=== PATIENT | male | born 1955 | race Caucasian/White ===

== ENCOUNTER 2018-08-08 16:10 | Emergency (ER) | payer MEDICARE, MEDICAID ==
--- NOTE | 2018-08-08 16:21 | EDM.PDOC ---
ED HPI GENERAL MEDICAL PROBLEM - General Chief Complaint: Neuro Symptoms/Deficits Stated Complaint: [facility] Time Seen by Provider: 08/08/18 16:18 Source of Information: Reports: Patient, EMS History Limitations: Reports: No Limitations - History of Present Illness INITIAL COMMENTS - FREE TEXT/NARRATIVE: 63-year-old male presents to the ED per ambulance. Patient states he was okay when he woke up this morning and around 8:30 he started to identify that his speech was not right and he could not communicate normally with his family members which could cause a good deal of frustration. I.e. he exhibited expressive aphasia. 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 He gets around with aid of somebody helping him. He can't use a walker. She is wheelchair-bound. He complains of a severe headache in the vertex of his scalp. He states he rarely gets a headache. Described as constant and throbbing. He did have nausea and vomiting 1 today. No change in his visual acuity. He appreciates increased numbness and tingling in his right hand and leg. Not so much in his face. No trouble swallowing. Hasn't had much to eat or drink yet today. Of note the patient is on Plavix 75 mg daily since he had his last stroke. I believe is also on a baby aspirin daily. He states his symptoms waxed and waned for a period of time this morning but it's been at least 4 hours without any change in his symptoms. Onset: Today Onset Date: 08/08/18 (First noted trouble speaking or expressive aphasia around 0830 hrs. this morning) Onset Time: 08:30 Duration: Hour(s):, Constant (In terms been constant for the last 4-1/2 hours.) , Intermittent, Waxing/Waning Location: Reports: Other (Ratio is increased right sided arm and leg numbness and tingling and intermittent problems with his speech i.e. 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: Reports: EKG, IV/IO Headache Pain Score (Numeric/FACES): 8 - Related Data Allergies Allergy/AdvReac Type Severity Reaction Status Date / Time ampicillin Allergy Airway Verified 08/08/18 16:29 Tightness levofloxacin [From Levaquin] Allergy Airway Verified 08/08/18 16:29 Tightness tramadol [From Ultram] Allergy Airway Verified 08/08/18 16:29 Tightness Home Meds: Home Meds Aspirin 81 mg PO DAILY 08/08/18 [History] Clopidogrel Bisulfate [Plavix] 75 mg PO DAILY 08/08/18 [History] Dulaglutide [Trulicity] 50 mg SQ ASDIRECTED 08/08/18 [History] Fluconazole [Diflucan] 100 mg PO DAILY 08/08/18 [History] Hydrochlorothiazide [Microzide] 12.5 mg PO DAILY 08/08/18 [History] Losartan [Cozaar] 100 mg PO DAILY 08/08/18 [History] Memantine [Namenda] 5 mg PO DAILY 08/08/18 [History] Simvastatin [Zocor] 40 mg PO BEDTIME 08/08/18 [History] buPROPion HCl [Wellbutrin Xl] 300 mg PO DAILY 08/08/18 [History] metFORMIN HCl [Metformin HCl] 1,000 mg PO BID 08/08/18 [History] Past Medical History Cardiovascular History: Reports: High Cholesterol, Hypertension, PA Respiratory History: Reports: COPD Genitourinary History: Reports: Prostate Disorder Neurological History: Reports: CVA (Patient has a complete right sided hemiparesis with flexion contractures at the hand wrist and elbow on the right side from a stroke 4 years ago. He walks with the aid of one person aid as he is not able to hang onto a walker.), TIA Endocrine/Metabolic History: Reports: Diabetes, Type II (Controlled with to the city and metformin.) Social & Family History - Living Situation & Occupation Living situation: Reports: , with Family Occupation: Disabled [facility] [employer] [facility] - Review of Systems Review Of Systems: See Below (His family members care for him.) Constitutional: Reports: Fatigue (Chronically). Denies: Fever, Chills, Malaise HEENT: Reports: Glasses (For reading sometimes). Denies: Contact Lenses Respiratory: Reports: Shortness of Breath (Chronically still smokes a pack a day ), Cough, Sputum. Denies: Hemoptysis Cardiovascular: Reports: Blood Pressure Problem, Edema. Denies: Chest Pain, Claudication, Lightheadedness, Orthopnea Endocrine: Reports: Fatigue (Mild in both lower extremities mostly on the right from not moving.), Other (Sugars have been for the most part pretty well controlled since he's be sedentary.) GI/Abdominal: Reports: Constipation (Additional problems with his bowels.) : Reports: Frequency, Other (Nocturia usually 2 or 3) Musculoskeletal: Reports: Other (Patient has a right-sided hemiparesis with Dundy contractures of his wrist elbow on the right side. He has a right- sided foot drop for which he uses an AFO splint.) Skin: Reports: Bruising ( He can walk with the aid of a helper on the right side but is not able to use a walker because he can hang onto it with his right hand.is easily because he is on Plavix and aspirin. ) Neurological: Reports: Confusion (Charges show signs of dementia with loss of acute memory. He is on Namenda.) Psychiatric: Reports: No Symptoms Hematologic/Lymphatic: Reports: No Symptoms Immunologic: Reports: No Symptoms ED EXAM, NEURO - Physical Exam Exam: See Below Exam Limited By: No Limitations General Appearance: Alert, WD/WN, No Apparent Distress, Other (Chills understandable but he has some very mild expressive aphasia symptoms at the time of my assessment. He is not nearly as stressed out about it is his family members are.) Eye Exam: Bilateral Eye: Normal Fundi, PERRL Throat/Mouth: Other (Tongue is dry and coated. Teeth are in need of dental care. ) Head Exam: Atraumatic, Normocephalic Neck: Limited Range of Motion. No: Full Range of Motion, Lymphadenopathy (L), Lymphadenopathy (R) Respiratory/Chest: Chest Non-Tender, Decreased Breath Sounds, Wheezing ( Decreased breath sounds the posterior aspect of 25% of his lung waldron. Lateral expiratory wheezes on expiration.). No: Normal Breath Sounds Cardiovascular: No Gallop (Tachycardia 1 18/m initially but it did come down to 100/m over time), No Murmur, No Rub, Tachycardia. No: Normal Peripheral Pulses , No Edema GI/Abdominal: Normal Bowel Sounds, Soft, Non-Tender, No Organomegaly Neurological: Alert, CN II-XII Intact, Oriented x 3, Other (She has a complete right sided hemiparesis. He has flexion contractures at his right wrist and elbow. He wears an AFO splint on the right side because of foot drop on the right side. He has absence of any reflexes on the right side. Left side shows 1 + reflexes at the biceps and brachial radialis and 1+ at the patellar reflex he has no ankle jerk on the left side. Motor power and tone in the left side appeared to be normal.). No: Normal Dorsiflexion, Normal Plantar Flexion, Normal Gait, Normal Reflexes DTR: 0: Bicep (R), Patella (R), Achilles (R), Achilles (L), 1+: Bicep (L), Patella (L) Extremities: Other (Flexion contractures of the wrist on the right side as well as the elbow.) Psychiatric: Normal Affect ( Foot drop on the right side.), Normal Mood Skin Exam: Warm, Dry, Intact, Normal Color, No Rash EKG INTERPRETATION EKG Date: 08/08/18 Time: 16:16 Rhythm: NSR Rate (Beats/Min): 95 [place]: Normal P-Wave: Present QRS: Other (Early R-wave transition. Continue sitter right ventricular hypertrophy pattern versus septal hypertrophy pattern. Decreased voltage throughout the limb leads. PD pattern) ST-T: Other (T-wave flattening noted in aVL and 3 and perhaps aVF nonspecific findings) EKG Interpretation Comments: Borderline ECG Course - Vital Signs Last Recorded V/S: Last Vital Signs Temp 36.6 C 08/08/18 16:15 Pulse 105 H 08/08/18 16:15 Resp 16 08/08/18 16:15 BP Pulse Ox 97 08/08/18 16:15 - Orders/Labs/Meds Orders: Active Orders 24 hr Category Date Time Status Blood Glucose Check, Bedside [RC] ONETIME Care 08/08/18 16:37 Active EKG Documentation Completion [RC] STAT Care 08/08/18 16:20 Active Sodium Chloride 0.9% [Normal Saline] 1,000 ml Med 08/08/18 16:45 Active IV ASDIRECTED Medication Orders Sodium Chloride (Normal Saline) 1,000 mls @ 125 mls/hr IV ASDIRECTED IVELISSE Last Admin: 08/08/18 16:42 Dose: 125 mls/hr Labs: Laboratory Tests 08/08/18 08/08/18 08/08/18 Range/Units 16:17 16:18 16:18 WBC 8.16 (4.23-9.07) K/mm3 RBC 4.48 L (4.63-6.08) M/mm3 Hgb 12.5 L (13.7-17.5) gm/L Hct 36.6 L (40.1-51.0) % MCV 81.7 (79.0-92.2) fl MCH 27.9 (25.7-32.2) pg MCHC 34.2 (32.2-35.5) g/dl RDW Std Deviation 43.6 (35.1-43.9) fL Plt Count 346 H (163-337) K/mm3 MPV 9.0 L (9.4-12.3) fl Neutrophils % (Manual) 42 (40-60) % Band Neutrophils % 0 (0-10) % Lymphocytes % (Manual) 51 H (20-40) % Atypical Lymphs % 0 % Monocytes % (Manual) 5 (2-10) % Eosinophils % (Manual) 2 (0.8-7.0) % Basophils % (Manual) 0 L (0.2-1.2) Platelet Estimate Adequate Plt Morphology Comment Normal RBC Morph Comment Normal PT 11.4 (9.5-12.1) SECONDS INR 1.05 APTT 31 (24-31) SECONDS Sodium (136-145) mEq/L Potassium (3.5-5.1) mEq/L Chloride (98-107) mEq/L Carbon Dioxide (21-32) mEq/L Anion Gap (5-15) BUN (7-18) mg/dL Creatinine (0.7-1.3) mg/dL Est Cr Clr Drug Dosing mL/min Estimated GFR (MDRD) (>60) mL/min BUN/Creatinine Ratio (14-18) Glucose (80-115) mg/dL POC Glucose 129 H (80-115) mg/dL Calcium (8.5-10.1) mg/dL Magnesium (1.8-2.4) mg/dl Total Bilirubin (0.2-1.0) mg/dL AST (15-37) U/L ALT (16-63) U/L Alkaline Phosphatase (46-116) U/L CK-MB (CK-2) (0-3.6) ng/ml Troponin I (0.00-0.056) ng/mL C-Reactive Protein (<1.0) mg/dL NT-Pro-B Natriuret Pep (0-125) pg/mL Total Protein (6.4-8.2) g/dl Albumin (3.4-5.0) g/dl Globulin gm/dL Albumin/Globulin Ratio (1-2) 08/08/18 08/08/18 Range/Units 16:18 16:18 WBC (4.23-9.07) K/mm3 RBC (4.63-6.08) M/mm3 Hgb (13.7-17.5) gm/L Hct (40.1-51.0) % MCV (79.0-92.2) fl MCH (25.7-32.2) pg MCHC (32.2-35.5) g/dl RDW Std Deviation (35.1-43.9) fL Plt Count (163-337) K/mm3 MPV (9.4-12.3) fl Neutrophils % (Manual) (40-60) % Band Neutrophils % (0-10) % Lymphocytes % (Manual) (20-40) % Atypical Lymphs % % Monocytes % (Manual) (2-10) % Eosinophils % (Manual) (0.8-7.0) % Basophils % (Manual) (0.2-1.2) Platelet Estimate Plt Morphology Comment RBC Morph Comment PT (9.5-12.1) SECONDS INR APTT (24-31) SECONDS Sodium 138 (136-145) mEq/L Potassium 3.4 L (3.5-5.1) mEq/L Chloride 101 (98-107) mEq/L Carbon Dioxide 27 (21-32) mEq/L Anion Gap 13.4 (5-15) BUN 13 (7-18) mg/dL Creatinine 1.4 H (0.7-1.3) mg/dL Est Cr Clr Drug Dosing 52.60 mL/min Estimated GFR (MDRD) 51 (>60) mL/min BUN/Creatinine Ratio 9.3 L (14-18) Glucose 127 H (80-115) mg/dL POC Glucose (80-115) mg/dL Calcium 8.7 (8.5-10.1) mg/dL Magnesium 1.1 L (1.8-2.4) mg/dl Total Bilirubin 0.4 (0.2-1.0) mg/dL AST 14 L (15-37) U/L ALT 20 (16-63) U/L Alkaline Phosphatase 75 (46-116) U/L CK-MB (CK-2) 0.6 (0-3.6) ng/ml Troponin I < 0.017 (0.00-0.056) ng/mL C-Reactive Protein < 0.2 (<1.0) mg/dL NT-Pro-B Natriuret Pep 126 H (0-125) pg/mL Total Protein 7.4 (6.4-8.2) g/dl Albumin 3.4 (3.4-5.0) g/dl Globulin 4.0 gm/dL Albumin/Globulin Ratio 0.9 L (1-2) Meds: Medications Generic Name Dose Route Start Last Admin Trade Name Freq PRN Reason Stop Dose Admin Sodium Chloride 1,000 mls @ 125 mls/hr 08/08/18 16:45 08/08/18 16:42 Normal Saline IV 125 mls/hr ASDIRECTED IVELISSE Administration Discontinued Medications Generic Name Dose Route Start Last Admin Trade Name Freq PRN Reason Stop Dose Admin Hydromorphone HCl 1 mg 08/08/18 16:48 08/08/18 16:53 Dilaudid IVPUSH 08/08/18 16:49 1 mg ONETIME ONE Administration Ondansetron HCl 4 mg 08/08/18 16:49 08/08/18 16:53 Zofran IVPUSH 08/08/18 16:50 4 mg ONETIME ONE Administration - Radiology Interpretation Free Text/Narrative:: 63-year-old male attends the ED with the development of stroke like symptoms with expressive aphasia starting about 0830 hrs. this morning. Patient has had previous right-sided stroke with hemiparesis of the right side persisting for years ago. He's been in a combination of therapy programs which she's given up on. He walks with aid of one person help her. He can hang onto a walker. He wears an AFO splint on the right side to aid his gait because he has a foot drop on the right side. Currently has significant flexion contractures of his right wrist and elbow. Family members indicate that he did have an expressive aphasia and was not understandable for a couple of times a day. Symptoms waxed and waned a couple of occasions. Is on Plavix and baby aspirin which she states she's been compliant with. ECG shows sinus rhythm without any ectopy. At time of my assessment he had very minimal expressive aphasia symptoms. Because a stroke alert was called he was sent immediately to the CT suite. CT identified that he has very prominent ventricles along the basal cisterns and sulci over the convexities are mildly prominent compatible with degenerative change there is old white matter infarct noted within the left basal ganglia extending into the centrum semiovale on the left side additional old basal ganglia infarct is noted adjacent to the head of the caudate nucleus extending into the periventricular white matter. Other scattered lacunar infarcts are seen within the basal ganglia. There is diminished density noted within the periventricular and subcortical white matter compatible small vessel ischemic demyelination changes bilaterally. No other parenchymal densities are seen. No evidence of intracranial hemorrhage no midline shift or mass effect incidentally there is a small air-fluid level within the right maxillary sinus considered to be chronic. There is mild mucosal thickening seen within both mastoid sinuses most likely pre-existing and chronic. No acute intracranial hemorrhage is appreciated. Chest x-ray shows scar tissue in both the right and lower lobes of the lungs. Patient continues to smoke a pack of cigarettes per day. No clinical evidence of pneumonia. - Re-Assessments/Exams Free Text/Narrative Re-Assessment/Exam: 08/08/18 18:08 Labs reveal a normal white count at 8.16. Differential is 42% neutrophils no bands with 51% lymphocytes ie. A right shift. Hemoglobin is 12.5 with hematocrit of 36.6. Chemistry and 46,000. PT is 11.4 with an INR of 1.05. PTT is 31. Sodium is 138 with potassium of 3.4. Chloride is 11 with a bicarbonate 27. Anion gap is 13.4. BUN is 13 with a creatinine of 1.4. GFR is 51. Glucose is 127. Calcium is 8.7 with a magnesium of 1.1. Total bilirubin is 0.4. AST is 14 with a nail T of 20. Alk phosphatase is 75. Troponin I is less than 0.017. CK-MB fraction is less than 0.6. BNP is 126. Total protein is 7.4 with an albumin fraction of 3.4. On reassessment his speech is returned to normal. Therefore he must have had a plaque causing a TIA symptoms with resolution. He is on maximum therapy with spurring and lab X daily. I'm going to have the nurses dress him with his AFO splint on his right foot and his daughter to assess the degree of weakness on the right side as to whether there is a dramatic change or not. Patient is not keen to stay in hospital. There is not much else we have to offer either. Certainly is not willing to go into a prison setting at this time. 08/08/18 18:55: Patient got up with his family members with his AFO splint on and was able to walk pretty well like he was at home. He wants to go home and they're willing to take him home and therefore he will be discharged in their care. I've increased his aspirin to 81 mg twice daily for 2 weeks and then is to return to once daily dosing. He will continue his Plavix 75 mg daily as well. Departure - Departure Time of Disposition: 18:37 Disposition: Home, Self-Care 01 Condition: Fair Clinical Impression: TIA (transient ischemic attack) - Discharge Information *PRESCRIPTION DRUG MONITORING PROGRAM REVIEWED*: Not Applicable *COPY OF PRESCRIPTION DRUG MONITORING REPORT IN PATIENT MATTY: Not Applicable Instructions: Transient Ischemic Attack, [id number] Forms: ED Department Discharge Additional Instructions: Evaluation in the emergency room today in regards to development of what we call expressive aphasia. This means that since 8:30 this morning you appreciated troubles getting out the right words to say and sometimes you were not easily understandable. Symptoms waxed and waned her came and went a couple of times but has remained pretty stable while in the emergency room. Previous right-sided hemiparesis from stroke 4 years ago. Is the same side that would be affected as a speech centers on the left side as the brain in the left side of the brain controls the right side of your body. CT repeated in the ED reveals multiple evidence of strokes on the left side of your brain was no evidence of any intracranial bleeding or hemorrhage and no mass effect or midline changes. There is evidence of a right-sided maxillary sinus infection which appears to be chronic. All the lab work also proved to be normal without any abnormalities appreciated. You're already on maximum therapy with Plavix 75 mg a day to try and prevent stroke. This prevents clot from occurring and causing a stroke but it does not prevent plaque breaking up from the inside of blood vessels and causing a stroke. The plaque often will break up into small particles to be what happened today. This is greater right area within the artery which makes it more prolonged prone to clotting over the next 7-10 days. It is suggested that you increase her aspirin to 81 mg twice daily for the next 2 weeks and then go back to once daily usage. Of course return to the hospital if any further major deficits occur. Follow-up with your personal care physician as planned. - My Orders Last 24 Hours: My Active Orders 08/08/18 16:20 EKG Documentation Completion [RC] STAT 08/08/18 16:37 Blood Glucose Check, Bedside [RC] ONETIME 08/08/18 16:45 Sodium Chloride 0.9% [Normal Saline] 1,000 ml IV ASDIRECTED - Assessment/Plan Last 24 Hours: My Active Orders 08/08/18 16:20 EKG Documentation Completion [RC] STAT 08/08/18 16:37 Blood Glucose Check, Bedside [RC] ONETIME 08/08/18 16:45 Sodium Chloride 0.9% [Normal Saline] 1,000 ml IV ASDIRECTED
[2018-08-08] MEDS ORDERED: Sodium Chloride 0.9% 1,000 ML IV SCH (16:45)
[2018-08-08] MEDS ORDERED: HYDROmorphone 1 MG/ML Syringe IVPUSH ONE (16:48)
[2018-08-08] MEDS ORDERED: Ondansetron 4 MG/2 ML SDV IVPUSH ONE (16:49)
--- NOTE | 2018-08-08 16:58 | CT ---
Head CT Technique: Multiple axial sections through the brain were obtained. Intravenous contrast was not utilized. Comparison: No prior intracranial imaging. Findings: Ventricles along with basal cisterns and sulci over the convexities are mildly prominent. Old white matter infarct is noted within the left basal ganglia extending into the centrum semi-ovale on the left side. Additional old basal ganglia infarct is noted adjacent to the head of the caudate nucleus extending into the periventricular white matter. Other scattered lacunar infarcts are seen within the basal ganglia. Diminished density is noted within the periventricular and subcortical white matter compatible with small vessel ischemic demyelination change. No other abnormal parenchymal densities are seen. No evidence of intracranial hemorrhage. No midline shift or mass effect is seen. Bone window settings were reviewed which shows no acute calvarial abnormality. Small air-fluid level is seen within the right maxillary sinus. Minimal mucosal thickening is seen within both mastoid sinuses. Impression: 1. Old infarcts as noted above. Small vessel ischemic demyelination change and atrophy is seen. 2. Small air-fluid level within the right maxillary sinus most likely due to retained secretions. Mild mucosal thickening is seen within both mastoid sinuses most likely pre-existing and chronic. 3. No acute intracranial abnormality is appreciated. Diagnostic code #2
--- NOTE | 2018-08-08 17:58 | CR ---
Chest: Portable view of the chest was obtained. Comparison: No prior chest x-ray. Atelectasis or scarring is seen within both mid and lower lungs. Perihilar markings are mildly increased on the left side suggesting possible bronchitis. Lungs otherwise are clear. Heart size is normal. Slightly prominent upper mediastinum is seen most likely representing tortuous great vessels. Bony structures are grossly intact. Impression: 1. Possible slight left lower lobe bronchitis. 2. Atelectasis or scarring within both lungs. 3. Other incidental findings. Diagnostic code #3
== END 2018-08-08 18:53 | disposition home or self-care (01) ==
LOC: JD.ED 16:10
DX: G45.9 Transient cerebral ischemic attack, unspecified (principal); I10 Essential (primary) hypertension; I25.2 Old myocardial infarction; E11.9 Type 2 diabetes mellitus without complications; Z88.1 Allergy status to other antibiotic agents; Z88.5 Allergy status to narcotic agent; Z79.82 Long term (current) use of aspirin; Z79.899 Other long term (current) drug therapy; Z79.84 Long term (current) use of oral hypoglycemic drugs; Z86.73 Personal history of transient ischemic attack (TIA), and cerebral infarction without residual deficits
CPT/HCPCS: 36415; 70450; 71045; 80053; 82553; 82962; 83735; 83880; 84484; 85007; 85027; 85610; 85730; 86140; 93005; 96361; 96374; 96375; 99285; J1170; J2405; J7040

== ENCOUNTER 2020-03-24 07:23 | Inpatient (IN) | payer MEDICARE, MEDICAID ==
--- NOTE | 2020-03-24 07:38 | EDM.PDOC ---
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 He had some speech involvement at that time. This morning he has inability to communicate verbally that makes any sense. I significant dysarthria and depressive aphasia. And is usually able to walk with the aid of a AFO splint on his right leg which remains in place at all times.) - History of Present Illness INITIAL COMMENTS - FREE TEXT/NARRATIVE: 64-year-old male presents to the ED per [facility]. The history suggest that they try to get him up this morning and he went down to the floor. They were unable to get him up and had to call the ambulance. They felt that his right-sided weakness was much worse than in the past. Of note he has had a previous CVA with a dense right-sided hemiparesis . He wears an AFO splint on his right lower extremity but does not walk. He gets around it with the aid of a wheelchair. He does have flexion contractures of his hand wrist and elbow on the right side. They also felt that his speech is deteriorated to the point that he was not understandable this morning. He they can understand his speech quite clearly. Patient is not able to tell us if he has a headache. It appears that he has lost some visual field on the left side. Patient is on Plavix due to stroke. I believe he still smokes cigarettes and has known COPD. He is also a type II diabetic. He also has hypertension. Apparently someone in the same household that he lives in had a COVID test done yesterday due to loss of taste and cough. However the results are not yet known to her. Onset: Today, Unknown/Unsure (Woke with symptom complex this morning.) Onset Date: 03/24/20 Duration: Other (Unknown.) Location: Reports: Upper Extremity, Right (Pre-existing right upper extremity paresis with flexion contractures of all of his fingers into a ball or a fist. No ability to move his wrist and flexion contracture at the elbow on the right side.), Lower Extremity, Right (Usually was able to walk with the aid of a AFO splint on the right leg. Fairly this is not the case this morning. Splint is in place.) Quality: Reports: Other (Increased right-sided weakness and speech deficit with dysarthria and speech that is not discernible.) Severity: Severe Improves with: Reports: None Worsens with: Reports: None Context: Reports: Other (Awoke with symptom complex this morning. Unsure when deficits started). Denies: Activity, Exercise, Sick Contact, Trauma Associated Symptoms: Denies: Confusion, Chest Pain, Cough, cough w sputum, Diaphoresis, Fever/Chills, Headaches, Nausea/Vomiting Treatments DIRECT[employer] OF [employer] SALES: Reports: Other (see below) - Related Data Allergies Allergy/AdvReac Type Severity Reaction Status Date / Time ampicillin Allergy Airway Verified 03/24/20 13:32 Tightness levofloxacin [From Levaquin] Allergy Airway Verified 03/24/20 13:32 Tightness tramadol [From Ultram] Allergy Airway Verified 03/24/20 13:32 Tightness Home Meds: Home Meds Aspirin 81 mg PO DAILY 08/08/18 [History] Clopidogrel Bisulfate [Plavix] 75 mg PO DAILY 08/08/18 [History] Losartan [Cozaar] 100 mg PO DAILY 08/08/18 [History] Memantine [Namenda] 5 mg PO DAILY 08/08/18 [History] Simvastatin [Zocor] 40 mg PO BEDTIME 08/08/18 [History] hydroCHLOROthiazide [Microzide] 12.5 mg PO DAILY 08/08/18 [History] metFORMIN HCl [Metformin HCl] 1,000 mg PO BID 08/08/18 [History] Dulaglutide [Trulicity] 1.5 mg SQ WEEKLY 03/24/20 [History] Insulin Aspart [NovoLOG] 0 units SUBCUT DAILY 03/24/20 [History] Insulin Glargine,Hum.Rec.Anlog [Basaglar Kwikpen U-100] 30 units SQ BID 03/24/20 [History] Levothyroxine 75 mcg PO DAILY 03/24/20 [History] Pantoprazole Sodium [Protonix] 20 mg PO DAILY 03/24/20 [History] Past Medical History Cardiovascular History: Reports: High Cholesterol, Hypertension, [place] Respiratory History: Reports: COPD Gastrointestinal History: Reports: GERD Genitourinary History: Reports: Prostate Disorder Neurological History: Reports: CVA (Patient has a complete right sided hemiparesis with flexion contractures at the hand wrist and elbow on the right side from a stroke 4 years ago. He walks with the aid of one person aid as he is not able to hang onto a walker.), TIA Endocrine/Metabolic History: Reports: Diabetes, Type II (Controlled with to the city and metformin.) Social & Family History - Living Situation & Occupation Living situation: Reports: , with Family Occupation: Disabled ED ROS GENERAL - Review of Systems Review Of Systems: Unable To Obtain (Unable to obtain) Reason Not Obtained: Very dysarthria and expressive aphasia as part of a stroke comple ED EXAM, NEURO - Physical Exam Exam: See Below Exam Limited By: Physical Impairment (Impaired speech with expressive aphasia. Pre-existing right-sided dense hemiparesis from previous CVA.) General Appearance: Alert, No Apparent Distress, Other (He makes eye contact and he knows who I am and weighs with his left hand.) Eye Exam: Bilateral Eye: Normal Inspection, PERRL (It is questionable whether he has a left-sided temporal visual field loss.) Head Exam: Atraumatic, Normocephalic, Other (No outward signs of head or facial trauma.) Neck: Normal Inspection, Limited Range of Motion. No: Carotid Bruit, Lymphadenopathy (L), Lymphadenopathy (R), Thyromegaly Respiratory/Chest: No Respiratory Distress, Lungs Clear, Normal Breath Sounds, Crackles (Crackles both bases.) Cardiovascular: Regular Rate, Rhythm, No Edema, No Gallop, No Murmur, No Rub GI/Abdominal: Normal Bowel Sounds, Non-Tender, No Organomegaly, No Mass, Pelvis Stable Neurological: Alert, Normal Gait (Yet assessed.), No Motor/Sensory Deficits (He has a complete right-sided hemiparesis with flexion contractures at the hand with his fingers in a ball or a fist. Flexion contracture at the wrist and elbow. AFO splint right leg.), Other (No deficits appreciated on examination of the left side. She has a dysarthric speech and is not discernible. Expressive aphasia appreciated). No: CN II-XII Intact, Normal Reflexes DTR: 0: Bicep (R), Patella (R), Achilles (R), Achilles (L), 1+: Bicep (L), Patella (L) Extremities: Other (Right lower extremity has an AFO splint on. He has increased motor tone and some spasticity in this limb. Right upper scrambled extremity shows flexion contractures at the hand wrist and elbow.) Skin Exam: Warm, Dry, Intact, Normal Color, No Rash EKG INTERPRETATION EKG Date: 03/24/20 Time: 07:37 Rhythm: Other Rate (Beats/Min): 100 [place]: Normal P-Wave: Enlarged QRS: Other (Consider right atrial hypertrophy. There is early R wave transition V2 V3 compatible with right ventricular hypertrophy pattern. There are Q waves in leads I and aVL which are less than 25% of the QRS complex and are considered insignificant.) QT: Prolonged (QTC is mildly prolonged.) EKG Interpretation Comments: Abnormal ECG Course - Vital Signs Last Recorded V/S: Last Vital Signs Temp 36.4 C 03/24/20 07:45 Pulse 99 03/24/20 07:45 Resp 16 03/24/20 07:45 BP 168/89 H 03/24/20 07:45 Pulse Ox 100 03/24/20 07:45 - Orders/Labs/Meds Orders: Active Orders 24 hr Category Date Time Status Sodium Chloride 0.9% [Normal Saline] 1,000 ml Med 03/24/20 08:00 Active IV ASDIRECTED Medication Orders Acetaminophen (Tylenol) 650 mg RECTAL Q4H PRN PRN Reason: Pain (mild 1-3) Aspirin (Halfprin) 81 mg PO DAILY [facility] Atropine Sulfate (Atropine 1% Ophth Soln) 0 ml SL Q6H PRN PRN Reason: secretions Last Admin: 03/24/20 18:59 Dose: 1 ml Documented by: BASHIR Dextrose/Water (Dextrose 50% In Water) 50 ml IVPUSH ASDIRECTED PRN PRN Reason: Hypoglycemia Enoxaparin Sodium (Lovenox) 40 mg SUBCUT DAILY [facility] Hydralazine HCl (Apresoline) 10 mg IVPUSH Q2H PRN PRN Reason: Hypertension Sodium Chloride (Normal Saline) 1,000 mls @ 100 mls/hr IV ASDIRECTED IV[facility] Last Admin: 03/24/20 07:54 Dose: 100 mls/hr Documented by: QIANA Dextrose/Lactated Ringer's (Dextrose 5%-Lactated Ringers) 1,000 mls @ 75 mls/hr IV ASDIRECTED IVELISSE Last Admin: 03/24/20 17:45 Dose: 75 mls/hr Documented by: PROEAMA Miscellaneous Information (Remove Patch) 1 ea TRDERM DAILY [facility] Nicotine (Habitrol) 21 mg TRDERM DAILY [facility] Ondansetron HCl (Zofran) 4 mg IV Q6H PRN PRN Reason: Nausea/Vomiting Labs: Laboratory Tests 03/24/20 03/24/20 03/24/20 Range/Units 07:43 07:43 07:43 WBC 6.54 (4.23-9.07) K/mm3 RBC 4.73 (4.63-6.08) M/mm3 Hgb 12.4 L (13.7-17.5) gm/dl Hct 38.1 L (40.1-51.0) % MCV 80.5 (79.0-92.2) fl MCH 26.2 (25.7-32.2) pg MCHC 32.5 (32.2-35.5) g/dl RDW Std Deviation 43.6 (35.1-43.9) fL Plt Count 370 H (163-337) K/mm3 MPV 9.2 L (9.4-12.3) fl Neut % (Auto) 49.3 (34.0-67.9) % Lymph % (Auto) 31.7 (21.8-53.1) % Clark % (Auto) 17.3 H (5.3-12.2) % Eos % (Auto) 1.1 (0.8-7.0) Baso % (Auto) 0.3 (0.1-1.2) % Neut # (Auto) 3.23 (1.78-5.38) K/mm3 Lymph # (Auto) 2.07 (1.32-3.57) K/mm3 Clark # (Auto) 1.13 H (0.30-0.82) K/mm3 Eos # (Auto) 0.07 (0.04-0.54) K/mm3 Baso # (Auto) 0.02 (0.01-0.08) K/mm3 Manual Slide Review Abnormal smear PT 11.3 (9.7-12.0) SECONDS INR 1.06 APTT 31 (22-31) SECONDS D-Dimer, Quantitative 0.62 H (0.19-0.50) mg/L Sodium 133 L (136-145) mEq/L Potassium 3.7 (3.5-5.1) mEq/L Chloride 98 (98-107) mEq/L Carbon Dioxide 22 (21-32) mEq/L Anion Gap 16.7 H (5-15) BUN 20 H (7-18) mg/dL Creatinine 2.0 H (0.7-1.3) mg/dL Est Cr Clr Drug Dosing TNP Estimated GFR (MDRD) 34 (>60) mL/min BUN/Creatinine Ratio 10.0 L (14-18) Glucose 201 H (80-115) mg/dL POC Glucose (80-115) mg/dL Hemoglobin A1c (4.50-6.20) % Calcium 8.9 (8.5-10.1) mg/dL Magnesium 1.4 L (1.8-2.4) mg/dl Ferritin (26-388) ng/ml Total Bilirubin 0.3 (0.2-1.0) mg/dL AST 16 (15-37) U/L ALT 19 (16-63) U/L Alkaline Phosphatase 92 (46-116) U/L Lactate Dehydrogenase (85-227) U/L Troponin I 0.095 H* (0.00-0.056) ng/mL NT-Pro-B Natriuret Pep (0-125) pg/mL Total Protein 7.7 (6.4-8.2) g/dl Albumin 3.2 L (3.4-5.0) g/dl Globulin 4.5 gm/dL Albumin/Globulin Ratio 0.7 L (1-2) SARS Virus RNA (PCR) (NEGATIVE) 03/24/20 03/24/20 03/24/20 Range/Units 07:43 07:43 07:43 WBC (4.23-9.07) K/mm3 RBC (4.63-6.08) M/mm3 Hgb (13.7-17.5) gm/dl Hct (40.1-51.0) % MCV (79.0-92.2) fl MCH (25.7-32.2) pg MCHC (32.2-35.5) g/dl RDW Std Deviation (35.1-43.9) fL Plt Count (163-337) K/mm3 MPV (9.4-12.3) fl Neut % (Auto) (34.0-67.9) % Lymph % (Auto) (21.8-53.1) % Clark % (Auto) (5.3-12.2) % Eos % (Auto) (0.8-7.0) Baso % (Auto) (0.1-1.2) % Neut # (Auto) (1.78-5.38) K/mm3 Lymph # (Auto) (1.32-3.57) K/mm3 Clark # (Auto) (0.30-0.82) K/mm3 Eos # (Auto) (0.04-0.54) K/mm3 Baso # (Auto) (0.01-0.08) K/mm3 Manual Slide Review PT (9.7-12.0) SECONDS INR APTT (22-31) SECONDS D-Dimer, Quantitative (0.19-0.50) mg/L Sodium (136-145) mEq/L Potassium (3.5-5.1) mEq/L Chloride (98-107) mEq/L Carbon Dioxide (21-32) mEq/L Anion Gap (5-15) BUN (7-18) mg/dL Creatinine (0.7-1.3) mg/dL Est Cr Clr Drug Dosing Estimated GFR (MDRD) (>60) mL/min BUN/Creatinine Ratio (14-18) Glucose (80-115) mg/dL POC Glucose (80-115) mg/dL Hemoglobin A1c 10.60 H (4.50-6.20) % Calcium (8.5-10.1) mg/dL Magnesium (1.8-2.4) mg/dl Ferritin (26-388) ng/ml Total Bilirubin (0.2-1.0) mg/dL AST (15-37) U/L ALT (16-63) U/L Alkaline Phosphatase (46-116) U/L Lactate Dehydrogenase 213 (85-227) U/L Troponin I (0.00-0.056) ng/mL NT-Pro-B Natriuret Pep 565 H (0-125) pg/mL Total Protein (6.4-8.2) g/dl Albumin (3.4-5.0) g/dl Globulin gm/dL Albumin/Globulin Ratio (1-2) SARS Virus RNA (PCR) (NEGATIVE) 03/24/20 03/24/20 03/24/20 Range/Units 07:43 07:52 09:00 WBC (4.23-9.07) K/mm3 RBC (4.63-6.08) M/mm3 Hgb (13.7-17.5) gm/dl Hct (40.1-51.0) % MCV (79.0-92.2) fl MCH (25.7-32.2) pg MCHC (32.2-35.5) g/dl RDW Std Deviation (35.1-43.9) fL Plt Count (163-337) K/mm3 MPV (9.4-12.3) fl Neut % (Auto) (34.0-67.9) % Lymph % (Auto) (21.8-53.1) % Clark % (Auto) (5.3-12.2) % Eos % (Auto) (0.8-7.0) Baso % (Auto) (0.1-1.2) % Neut # (Auto) (1.78-5.38) K/mm3 Lymph # (Auto) (1.32-3.57) K/mm3 [place] # (Auto) (0.30-0.82) K/mm3 Eos # (Auto) (0.04-0.54) K/mm3 Baso # (Auto) (0.01-0.08) K/mm3 Manual Slide Review PT (9.7-12.0) SECONDS INR APTT (22-31) SECONDS D-Dimer, Quantitative (0.19-0.50) mg/L Sodium (136-145) mEq/L Potassium (3.5-5.1) mEq/L Chloride (98-107) mEq/L Carbon Dioxide (21-32) mEq/L Anion Gap (5-15) BUN (7-18) mg/dL Creatinine (0.7-1.3) mg/dL Est Cr Clr Drug Dosing Estimated GFR (MDRD) (>60) mL/min BUN/Creatinine Ratio (14-18) Glucose (80-115) mg/dL POC Glucose 181 H (80-115) mg/dL Hemoglobin A1c (4.50-6.20) % Calcium (8.5-10.1) mg/dL Magnesium (1.8-2.4) mg/dl Ferritin 27 (26-388) ng/ml Total Bilirubin (0.2-1.0) mg/dL AST (15-37) U/L ALT (16-63) U/L Alkaline Phosphatase (46-116) U/L Lactate Dehydrogenase (85-227) U/L Troponin I (0.00-0.056) ng/mL NT-Pro-B Natriuret Pep (0-125) pg/mL Total Protein (6.4-8.2) g/dl Albumin (3.4-5.0) g/dl Globulin gm/dL Albumin/Globulin Ratio (1-2) SARS Virus RNA (PCR) Positive H (NEGATIVE) Meds: Medications Generic Name Dose Route Start Last Admin Trade Name Freq PRN Reason Stop Dose Admin Acetaminophen 650 mg 03/24/20 09:56 Tylenol RECTAL Q4H PRN Pain (mild 1-3) Aspirin 81 mg 03/25/20 09:00 Halfprin PO DAILY IVEL[facility] Atropine Sulfate 0 ml 03/24/20 18:24 03/24/20 18:59 Atropine 1% Ophth Soln SL 1 ml Q6H PRN Administration secretions Dextrose/Water 50 ml 03/24/20 11:24 Dextrose 50% In Water IVPUSH ASDIRECTED PRN Hypoglycemia Enoxaparin Sodium 40 mg 03/25/20 09:00 Lovenox SUBCUT DAILY [facility] Hydralazine HCl 10 mg 03/24/20 11:24 Apresoline IVPUSH Q2H PRN Hypertension Sodium Chloride 1,000 mls @ 100 mls/hr 03/24/20 08:00 03/24/20 07:54 Normal Saline IV 100 mls/hr ASDIRECTED IVELISSE Administration Dextrose/Lactated Ringer's 1,000 mls @ 75 mls/hr 03/24/20 17:00 03/24/20 17:45 Dextrose 5%-Lactated Ringers IV 75 mls/hr ASDIRECTED IVELISSE Administration Miscellaneous Information 1 ea 03/26/20 09:00 Remove Patch TRDERM DAILY [facility] Nicotine 21 mg 03/25/20 09:00 Habitrol TRDERM DAILY [facility] Ondansetron HCl 4 mg 03/24/20 09:56 Zofran IV Q6H PRN Nausea/Vomiting Discontinued Medications Generic Name Dose Route Start Last Admin Trade Name Temo PRN Reason Stop Dose Admin Aspirin 324 mg 03/24/20 11:24 03/24/20 14:16 Aspirin PO 03/24/20 11:25 Not Given ONETIME ONE Aspirin 300 mg 03/24/20 14:30 03/24/20 15:15 Aspirin RECTAL 03/24/20 14:31 300 mg ONETIME ONE Administration Magnesium Sulfate 4 gm/ Premix 50 mls @ 12.5 mls/hr 03/24/20 08:36 03/24/20 09:02 IV 03/24/20 12:35 12.5 mls/hr ONETIME ONE Administration Lactated Ringer's 1,000 mls @ 75 mls/hr 03/24/20 10:00 03/24/20 15:23 Ringers, Lactated IV 75 mls/hr ASDIRECTED IVELISSE Administration Rosuvastatin Calcium 20 mg 03/24/20 11:30 03/24/20 14:16 Crestor PO Not Given DAILY [facility] - Radiology Interpretation Free Text/Narrative:: Next a 4-year-old male presents to the ED with apparent increased right-sided paresis with a pre-existing dense right hemiparetic stroke. He is having increased troubles with his speech this morning. His speech is usually discernible but it is not today due to dysarthria and expressive aphasia. No left-sided weakness appreciated. He is in sinus rhythm. He is a type II diabetic blood sugar will be checked at the bedside. IV will be normal saline at 100 mils per hour. Routine labs to be obtained CT had to be done. Of note the patient is on Plavix and aspirin. At this point it appears that the stroke or worsening of his right-sided paresis occurred sometime during the night and we do not have a firm time frame as to when this may have occurred. - Re-Assessments/Exams Free Text/Narrative Re-Assessment/Exam: 03/24/20 08:02 CT of the brain reveals marked prominence of the sulci compatible with advanced degenerative brain disease. Lateral ventricles are also enlarged with some encephalomalacia particular at the anterior horns of the ventricles. There appears to be an old infarct in the right basal ganglia. Lacunar infarcts are noted within the basal ganglia on both sides as well is within the right semi-centrum ovale. Diffuse decreased density within the periventricular white matter is seen compared with small vessel demyelination change. There is no intracranial bleeding or mass-effect. Bone window settings were reviewed. Mild mucosal thickening seen inferiorly within the right mastoid sinus which appears chronic. Prior study showed mucosal thickening within the left mastoid sinus which is no longer present. Chest x-ray done portably reveals mildly hyperinflated lung waldron bilaterally. Also appears to have some degree of interstitial pulmonary fibrosis in both lower lobes. Slight linear scarring is seen within the right lung base. Also mild diffuse vascular congestion pattern upper lobes as well. Cardiac silhouette is essentially normal. 03/24/20 08:27 patient was given a water challenge to try and drink but could not swallow. He gurgles quite badly with a sip of water. Normally he could swallow normally. Blood pressure is 11 34/83 sats are 98% on room air. Heart rate is sinus tachycardia at 103. Afebrile 03/24/20 08:34 Labs reveal a normal white count at 6.54. Auto differential shows 49% neutrophils. Hemoglobin is 12.4 with hematocrit of 38.1. Platelet counts 370,000. Does have an increased amount of monocytes at 17.3%. PT is 11.3 with an INR of 1.06. PTT is 31. D-dimer is 0.62 upper limits of normal. Sodium slightly low at 133 with a potassium of 3.7. Chloride 98 with a bicarb of 22. Anion gap is 16.7 elevated. BUN is 20 with a creatinine of 2.0. Estimated GFR is 34 a stage III chronic renal insufficiency glucose is elevated at 201 patient is known to be a type II diabetic. Glucose is 181 at the bedside calcium 8.9 magnesium low at 1.4. Liver function is normal. Troponin I is slightly elevated at 0.095. Total protein is 7.7 with an albumin fraction of 3.2. Will await his BNP to see if his troponin bump is due to mild heart failure. Will start him on intravenous magnesium 4 g over the next 2 hours. 03/24/20 09:0 glycosylated protein is markedly elevated at 10.61 indicating very very poor control of his blood sugars. BNP is mildly elevated at 565 which is likely for the slight rise in his serum troponin level. I will discuss the case with on-call hospitalist Dr. Baca with a view to having him admitted. If he cannot swallow he may well end up with a feeding tube. 03/24/20 09:[address] Baca and she will see the patient in the ED with a view to admission to the hospital for stroke management. 03/24/20 10:51 lab called over and his COVID 19 test is positive. Therefore serum ferritin, LDH and lactic acid levels were ordered. 03/24/20 12:14: Lactate dehydrogenase was normal at 213. Serum ferritin was normal at 27. Lactic acid was 1.0. Departure - Departure Time of Disposition: 13:15 Disposition: Admitted As Inpatient 64 Condition: Critical Clinical Impression: Lab test positive for detection of COVID-19 virus, Recurrent cerebrovascular accidents (CVAs), Expressive aphasia COPD (chronic obstructive pulmonary disease) Qualifiers: COPD type: emphysema Emphysema type: panlobular Qualified Code(s): J43.1 - Panlobular emphysema Uncontrolled type 2 diabetes mellitus Qualifiers: Glycemic state: with hyperglycemia Qualified Code(s): E11.65 - Type 2 diabetes mellitus with hyperglycemia - Discharge Information *PRESCRIPTION DRUG MONITORING PROGRAM REVIEWED*: Not Applicable *COPY OF PRESCRIPTION DRUG MONITORING REPORT IN PATIENT MATTY: Not Applicable Sepsis Event Note (ED) - Focused Exam Vital Signs: Vital Signs Temp Pulse Resp BP Pulse Ox 03/24/20 07:45 36.4 C 99 16 168/89 H 100 - My Orders Last 24 Hours: My Active Orders 03/24/20 08:00 Sodium Chloride 0.9% [Normal Saline] 1,000 ml IV ASDIRECTED - Assessment/Plan Last 24 Hours: My Active Orders 03/24/20 08:00 Sodium Chloride 0.9% [Normal Saline] 1,000 ml IV ASDIRECTED
[2020-03-24] MEDS ORDERED: Sodium Chloride 0.9% 1,000 ML IV SCH (08:00)
[2020-03-24 08:34] LABS: HEMOGLOBIN A1C 10.6 % (4.50-6.20)
[2020-03-24] MEDS ORDERED: Magnesium Sulfate/Water 4 GM in Premix Bag 1 BAG IV ONE (08:36)
--- NOTE | 2020-03-24 08:36 | CT ---
Head CT Technique: Multiple axial sections through the brain were obtained. Intravenous contrast was not utilized. Comparison: Previous head CT study of 08/08/18. Findings: Old lacunar infarcts are noted within the basal ganglia on both sides as well as within the right semi-centrum ovale. Is Diffuse decreased density within the periventricular white matter is seen compatible with small vessel ischemic demyelination change. No other abnormal parenchymal densities are seen. No evidence of intracranial hemorrhage. No midline shift or mass effect is seen. Bone window settings were reviewed. Mild mucosal thickening seen inferiorly within the right mastoid sinus which appears chronic. Prior study showed mucosal thickening within the left mastoid sinus which is not seen currently. Visualized paranasal sinuses show nothing acute. Impression: 1. Diffuse atrophy with multiple lacunar infarcts which appear old. Small vessel ischemic demyelination change is noted. 2. Minimal mastoid sinus finding believed to be chronic. 3. No definite acute intracranial abnormality is appreciated. Diagnostic code #3 Study was dictated in [facility]T
[2020-03-24] MEDS ORDERED: Ondansetron 4 MG/2 ML SDV IV PRN (09:56)
[2020-03-24] MEDS ORDERED: Acetaminophen 650 MG Supp RECTAL PRN (09:56)
[2020-03-24] MEDS ORDERED: Lactated Ringers 1,000 ML IV SCH (10:00)
--- NOTE | 2020-03-24 10:03 | PCM.HP.2 ---
H&P History of Present Illness - General Date of Service: 03/24/20 Admit Problem/Dx: Admission Diagnosis/Problem Admission Diagnosis/Problem CVA, Cerebrovascular accident - History of Present Illness Initial Comments - Free Text/Narative: HISTORY OBTAINED BY CHART REVIEW AND STAFF REPORTS PATIENT IS APHASIC 64-year-old male presents to the ED per [place] [facility]. The history suggest that they try to get him up this morning and he went down to the floor. They were unable to get him up and had to call the ambulance. They felt that his right-sided weakness was much worse than in the past. Of note he has had a previous CVA with a dense right-sided hemiparesis . He wears an AFO splint on his right lower extremity but does not walk. He gets around it with the aid of a wheelchair. He does have flexion contractures of his hand wrist and elbow on the right side. They also felt that his speech is deteriorated to the point that he was not understandable this morning. He they can understand his speech quite clearly. Patient is not able to tell us if he has a headache. It appears that he has lost some visual field on the left side. Patient is on Plavix due to stroke. I believe he still smokes cigarettes and has known COPD. He is also a type II diabetic. He also has hypertension. Apparently someone in the same household that he lives in had a COVID test done yesterday due to loss of taste and cough. However the results are not yet known to her. Onset: Today, Unknown/Unsure (Woke with symptom complex this morning.) Onset Date: 03/24/20 Duration: Other (Unknown.) Location: Reports: Upper Extremity, Right (Pre-existing right upper extremity paresis with flexion contractures of all of his fingers into a ball or a fist. No ability to move his wrist and flexion contracture at the elbow on the right side.), Lower Extremity, Right (Usually was able to walk with the aid of a AFO splint on the right leg. Fairly this is not the case this morning. Splint is in place.) Quality: Reports: Other (Increased right-sided weakness and speech deficit with dysarthria and speech that is not discernible.) Severity: Severe Improves with: Reports: None Worsens with: Reports: None Context: Reports: Other (Awoke with symptom complex this morning. Unsure when deficits started). 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 (see below) - Related Data Allergies/Adverse Reactions: Allergies Allergy/AdvReac Type Severity Reaction Status Date / Time ampicillin Allergy Airway Verified 03/24/20 07:48 Tightness levofloxacin [From Levaquin] Allergy Airway Verified 03/24/20 07:48 Tightness tramadol [From Ultram] Allergy Airway Verified 03/24/20 07:48 Tightness Home Medications: Home Meds Aspirin 81 mg PO DAILY 08/08/18 [History] Clopidogrel Bisulfate [Plavix] 75 mg PO DAILY 08/08/18 [History] Losartan [Cozaar] 100 mg PO DAILY 08/08/18 [History] Memantine [Namenda] 5 mg PO DAILY 08/08/18 [History] Simvastatin [Zocor] 40 mg PO BEDTIME 08/08/18 [History] hydroCHLOROthiazide [Microzide] 12.5 mg PO DAILY 08/08/18 [History] metFORMIN HCl [Metformin HCl] 1,000 mg PO BID 08/08/18 [History] Insulin Aspart [NovoLOG] 0 units SUBCUT DAILY 03/24/20 [History] Levothyroxine 75 mcg PO DAILY 03/24/20 [History] Pantoprazole Sodium [Protonix] 20 mg PO DAILY 03/24/20 [History] Past Medical History Cardiovascular History: Reports: High Cholesterol, Hypertension, CT Respiratory History: Reports: COPD Gastrointestinal History: Reports: GERD Genitourinary History: Reports: Prostate Disorder Neurological History: Reports: CVA (Patient has a complete right sided hemiparesis with flexion contractures at the hand wrist and elbow on the right side from a stroke 4 years ago. He walks with the aid of one person aid as he is not able to hang onto a walker.), TIA Endocrine/Metabolic History: Reports: Diabetes, Type II (Controlled with to the city and metformin.) Social & Family History - Tobacco Use Smoking Status *Q: Current Every Day Smoker Years of Tobacco use: 45 Packs/Tins Daily: 1.5 - Living Situation & Occupation Living situation: Reports: , with Family Occupation: Disabled H&P Review of Systems - Review of Systems: Review Of Systems: Unable To Obtain Reason Not Obtained: Severe aphasia Exam - Exam Exam: See Below - Vital Signs Vital Signs: Last Vital Signs Temp 97.5 F 03/24/20 07:45 Pulse 99 03/24/20 07:45 Resp 16 03/24/20 07:45 BP 168/89 H 03/24/20 07:45 Pulse Ox 100 03/24/20 07:45 Weight: 73.936 kg - Exam General: Alert, Cooperative. No: Mild Distress HEENT: Conjunctiva Clear, EACs Clear. No: Mucosa Moist & [place] (dry, no lesions, dentures on the bottom teeth) Neck: Supple Lungs: Decreased Breath Sounds. No: Crackles, Rales, Rhonchi, Rub, Stridor, Wheezing Cardiovascular: Regular Rate, Regular Rhythm. No: Systolic Murmur, Diastolic Murmur, Rubs, Gallop/S3, Gallop/S4 GI/Abdominal Exam: Normal Bowel Sounds, Soft, Non-Tender, Distended. No: Guarding, Rigid Extremities: Normal Inspection Peripheral Pulses: 2+: Radial (L), Radial (R) Neurological: Focal Deficit, Babinski, Hyporeflexia, Reflexes Unequal. No: Reflexes Equal Bilateral, Strength Equal Bilateral, Normal Gait, Normal Speech, Normal Tone, Sensation Intact Neuro Extensive - Mental Status: Alert - Patient Data Result Diagrams: 03/24/20 07:43 03/24/20 07:43 EKG INTERPRETATION EKG Date: 03/24/20 Time: 07:37 Rhythm: NSR [place]: Normal P-Wave: Present QRS: Normal ST-T: Normal QT: Prolonged (mild, 489) EKG Interpretation Comments: Right atrial enlargement Poor R wave progression Right ventricular hypertrophy Sepsis Event Note - Evaluation Sepsis Screening Result: No Definite Risk - Problem List (1) Acute cerebrovascular accident (CVA) SNOMED Code(s): 777753920, 932736583 ICD Code: I63.9 - CEREBRAL INFARCTION, UNSPECIFIED Status: Acute Current Visit: Yes (2) Plavix resistance SNOMED Code(s): 46469519 ICD Code: Z78.9 - OTHER SPECIFIED HEALTH STATUS Status: Acute Current Visit: Yes (3) Uncontrolled diabetes mellitus SNOMED Code(s): 31530277, 709622116 ICD Code: E11.65 - TYPE 2 DIABETES MELLITUS WITH HYPERGLYCEMIA Status: Acute Current Visit: Yes (4) Hypertension SNOMED Code(s): 98598143 ICD Code: I10 - ESSENTIAL (PRIMARY) HYPERTENSION Status: Acute Current Visit: Yes (5) Wheelchair bound SNOMED Code(s): 952231160, 570805063 ICD Code: Z99.3 - DEPENDENCE ON WHEELCHAIR Status: Acute Current Visit: Yes (6) Smoker SNOMED Code(s): 98143269 ICD Code: F17.200 - NICOTINE DEPENDENCE, UNSPECIFIED, UNCOMPLICATED Status: Acute Current Visit: Yes (7) Hypothyroidism SNOMED Code(s): 76729382 ICD Code: E03.9 - HYPOTHYROIDISM, UNSPECIFIED Status: Acute Current Visit: Yes (8) Dyslipidemia SNOMED Code(s): 511996470 ICD Code: E78.5 - HYPERLIPIDEMIA, UNSPECIFIED Status: Acute Current Visit: Yes (9) Acute kidney failure SNOMED Code(s): 15945658 ICD Code: N17.9 - ACUTE KIDNEY FAILURE, UNSPECIFIED Status: Acute Current Visit: Yes (10) Hypomagnesemia SNOMED Code(s): 794015560 ICD Code: E83.42 - HYPOMAGNESEMIA Status: Acute Current Visit: Yes (11) Elevated troponin SNOMED Code(s): 855766093, 554706795, 100786245 ICD Code: R79.89 - OTHER SPECIFIED ABNORMAL FINDINGS OF BLOOD CHEMISTRY Status: Acute Current Visit: Yes Problem List Initiated/Reviewed/Updated: Yes Assessment/Plan Comment:: Acute cerebrovascular accident (CVA) Plavix resistance Dyslipidemia Last known well around 7:30PM NIH on admission @ 7:42 is 9 NIH 15 upon my evaluation, difficult to assess due to severe aphasia Audible gargling Patient doesn't want PEG tube placed Patient declined Home transfer PLAN - CY2P12 measurement to evaluate for Plavix resistance - Continue Aspirin and Plavix - Rosuvastatin 40mg - NIH every 8 hours - NG tube insertion - NPO - PT/OT evaluation - Speech evaluation - Communication board - Repeat CT in AM Acute kidney failure Chronic Kidney Disease, Stage IIIA Hypomagnesemia Baseline GFR 50, 34 on admission Mg 1.4 on admission PLAN - Replace Mg with 4g MgSO4 - Monitor urine output, renally dosed medications - Replace labs in AM Uncontrolled diabetes mellitus, HbA1c- 10.6% Glucose on admission 181 Serology 201 Home management with metformin and NovoLog, unknown NovoLog dose PLAN - Accu-checks q6h while NPO - Hold both home medications - Hypoglycemia protocol Uncontrolled hypertension BP on admission 168/89 (115) Home management with Losartan and HCTZ PLAN - Hold home medications - PRN Hydralazine Elevated troponin Elevated on admission with no acute ischemic changes EKG PLAN - Trend troponin q6h - Repeat EKG in AM Smoker Active daily smoker of 1.5 ppd > 50yrs PLAN - Nicotine patch 21mg Hypothyroidism No acute issues PLAN - Hold home medications PROPHYLAXIS DVT- Lovenox GI- pantoprazole CODE STATUS: FULL CODE DISPOSITION: Patient will be admitted for medical management of stroke. Case discussed with neurologist in Home, Dr. Wetzel, who agrees with current management. - Mortality Measure Prognosis:: Poor
--- NOTE | 2020-03-24 10:27 | CR ---
Chest: Portable view of the chest was obtained. Comparison: Prior chest x-ray of 08/08/18. Slight linear scarring is seen within right lung base. Lungs otherwise are clear with no acute parenchymal change. Heart size and mediastinum are normal. Bony structures are grossly intact. Impression: 1. Linear scar within the right lung base. 2. Nothing acute is seen on portable chest x-ray. Diagnostic code #2 Study was dictated in MDT
[2020-03-24] MEDS ORDERED: 50% Dextrose in Water 50 ML Syringe IVPUSH PRN (11:24)
[2020-03-24] MEDS ORDERED: Aspirin 81 MG Tab.Chew PO ONE (11:24)
[2020-03-24] MEDS ORDERED: hydrALAZINE 20 MG/ML SDV IVPUSH PRN (11:24)
[2020-03-24] MEDS ORDERED: Rosuvastatin 10 MG Tab PO SCH (11:30)
--- NOTE | 2020-03-24 12:40 | PCM.PRNOTE ---
- Free Text/Narrative Note: Central Venous Catheter Placement Date: 03/24/2020 Time 12:05-12:25PM Indication: IV access in highly infectious patient to reduce time of staff exposure Attending: Brittany Baca MD A time-out was completed verifying correct patient, procedure, site, positioning, and special equipment if applicable. The patient was placed in a dependent position appropriate for central line placement based on the vein to becannulated. The patients right neck was prepped and draped in sterile fashion. 1%Lidocainewas used to anesthetize the surrounding skin area. A triple lumen 7-FrenchCordiscatheter was introduced into the the right internal jugular using the Seldingertechnique and under ultrasound guidance. The catheter was threaded smoothly over the guide wire and appropriate blood return was obtained. Each lumen of the catheter was evacuated of air and flushed with sterile saline. The catheter was then sutured in place to the skin and a sterile dressing applied. Perfusion to the extremity distal to the point of catheter insertion was checked and found to be adequate. Estimated Blood Loss: 12mL The patient tolerated the procedure well and there were no complications.
[2020-03-24] MEDS ORDERED: Aspirin 300 MG Supp RECTAL ONE (14:30)
[2020-03-24] MEDS: Dextrose 5%-Lactated Ringers 1,000 ML IV SCH (17:45)
[2020-03-24] MEDS: Atropine 1% Ophth Soln 5 ML BOTTLE SL PRN (18:59)
[2020-03-25] MEDS: Dextrose 5%-Lactated Ringers 1,000 ML IV SCH (04:59)
[2020-03-25] MEDS ORDERED: Lactated Ringers 1,000 ML IV ONE (07:45)
[2020-03-25] MEDS ORDERED: Aspirin 300 MG Supp RECTAL ONE (08:20)
--- NOTE | 2020-03-25 08:24 | PCM.DCSUM1 ---
Discharge Summary - Hospital Course HPI Initial Comments: HISTORY OBTAINED BY CHART REVIEW AND STAFF REPORTS PATIENT IS APHASIC 64-year-old male presents to the ED per [facility]. The history suggest that they try to get him up this morning and he went down to the floor. They were unable to get him up and had to call the ambulance. They felt that his right-sided weakness was much worse than in the past. Of note he has had a previous CVA with a dense right-sided hemiparesis . He wears an AFO splint on his right lower extremity but does not walk. He gets around it with the aid of a wheelchair. He does have flexion contractures of his hand wrist and elbow on the right side. They also felt that his speech is deteriorated to the point that he was not understandable this morning. He they can understand his speech quite clearly. Patient is not able to tell us if he has a headache. It appears that he has lost some visual field on the left side. Patient is on Plavix due to stroke. I believe he still smokes cigarettes and has known COPD. He is also a type II diabetic. He also has hypertension. Apparently someone in the same household that he lives in had a COVID test done yesterday due to loss of taste and cough. However the results are not yet known to her. Onset: Today, Unknown/Unsure (Woke with symptom complex this morning.) Onset Date: 03/24/20 Duration: Other (Unknown.) Location: Reports: Upper Extremity, Right (Pre-existing right upper extremity paresis with flexion contractures of all of his fingers into a ball or a fist. No ability to move his wrist and flexion contracture at the elbow on the right side.), Lower Extremity, Right (Usually was able to walk with the aid of a AFO splint on the right leg. Fairly this is not the case this morning. Splint is in place.) Quality: Reports: Other (Increased right-sided weakness and speech deficit with dysarthria and speech that is not discernible.) Severity: Severe Improves with: Reports: None Worsens with: Reports: None Context: Reports: Other (Awoke with symptom complex this morning. Unsure when deficits started). 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: Other (see below) Diagnosis: Stroke: Yes Modified Lander Scale: Sev.Disablility Bedridden,Incont.&Require Constant Nrsg.Care/Attention Modified Areli Scale Score: 5 - Discharge Data Discharge Date: 03/25/20 Discharge Disposition: DC/Tfer to Acute Hospital 02 Condition: Good - Referral to Home Health Primary Care Physician: PCP None - Discharge Diagnosis/Problem(s) (1) Acute cerebrovascular accident (CVA) SNOMED Code(s): 588719126, 361117712 ICD Code: I63.9 - CEREBRAL INFARCTION, UNSPECIFIED Status: Acute Current Visit: Yes (2) Plavix resistance SNOMED Code(s): 12141572 ICD Code: Z78.9 - OTHER SPECIFIED HEALTH STATUS Status: Acute Current Visit: Yes (3) Uncontrolled diabetes mellitus SNOMED Code(s): 99705778, 887247894 ICD Code: E11.65 - TYPE 2 DIABETES MELLITUS WITH HYPERGLYCEMIA Status: Acute Current Visit: Yes (4) Hypertension SNOMED Code(s): 87017164 ICD Code: I10 - ESSENTIAL (PRIMARY) HYPERTENSION Status: Acute Current Visit: Yes (5) Wheelchair bound SNOMED Code(s): 440772566, 944113816 ICD Code: Z99.3 - DEPENDENCE ON WHEELCHAIR Status: Acute Current Visit: Yes (6) Smoker SNOMED Code(s): 94296280 ICD Code: F17.200 - NICOTINE DEPENDENCE, UNSPECIFIED, UNCOMPLICATED Status: Acute Current Visit: Yes (7) Hypothyroidism SNOMED Code(s): 48928295 ICD Code: E03.9 - HYPOTHYROIDISM, UNSPECIFIED Status: Acute Current Visit: Yes (8) Dyslipidemia SNOMED Code(s): 492796509 ICD Code: E78.5 - HYPERLIPIDEMIA, UNSPECIFIED Status: Acute Current Visit: Yes (9) Acute kidney failure SNOMED Code(s): 25425625 ICD Code: N17.9 - ACUTE KIDNEY FAILURE, UNSPECIFIED Status: Acute Current Visit: Yes (10) Hypomagnesemia SNOMED Code(s): 918289379 ICD Code: E83.42 - HYPOMAGNESEMIA Status: Acute Current Visit: Yes (11) Elevated troponin SNOMED Code(s): 607605704, 347210882, 410366710 ICD Code: R79.89 - OTHER SPECIFIED ABNORMAL FINDINGS OF BLOOD CHEMISTRY Status: Acute Current Visit: Yes (12) COPD (chronic obstructive pulmonary disease) SNOMED Code(s): 61314816 ICD Code: J44.9 - CHRONIC OBSTRUCTIVE PULMONARY DISEASE, UNSPECIFIED Status: Acute Current Visit: Yes Qualifiers: COPD type: emphysema Emphysema type: panlobular Qualified Code(s): J43.1 - Panlobular emphysema (13) Expressive aphasia SNOMED Code(s): 133945825, 352463363 ICD Code: R47.01 - APHASIA Status: Acute Current Visit: Yes (14) Recurrent cerebrovascular accidents (CVAs) SNOMED Code(s): 371351512, 817788328 ICD Code: I63.9 - CEREBRAL INFARCTION, UNSPECIFIED Status: Acute Current Visit: Yes (15) Atrial fibrillation SNOMED Code(s): 36346976 ICD Code: I48.91 - UNSPECIFIED ATRIAL FIBRILLATION Status: Acute Current Visit: Yes - Patient Summary/Data Hospital Course: ADMISSION Acute cerebrovascular accident (CVA) Plavix resistance Dyslipidemia Last known well around 7:30PM NIH on admission @ 7:42 is 9 NIH 15 upon my evaluation, difficult to assess due to severe aphasia Audible gargling Patient doesn't want PEG tube placed Patient declined [facility] transfer Acute kidney failure Chronic Kidney Disease, Stage IIIA Hypomagnesemia Baseline GFR 50, 34 on admission Mg 1.4 on admission Uncontrolled diabetes mellitus, HbA1c- 10.6% Glucose on admission 181 Serology 201 Home management with metformin and NovoLog, unknown NovoLog dose Uncontrolled hypertension BP on admission 168/89 (115) Home management with Losartan and HCTZ Elevated troponin Elevated on admission with no acute ischemic changes EKG Smoker Active daily smoker of 4ppd > 50yrs PLAN - CY2P12 measurement to evaluate for Plavix resistance - Continue Aspirin and Plavix - Rosuvastatin 40mg - NIH every 8 hours - NPO until swallow eval - PT/OT/Speech evaluation - Replace Mg with 4g MgSO4 - Monitor urine output, renally dosed medications - Replace labs in AM - Trend troponin q6h - Repeat EKG in AM - Nicotine patch 21mg Prognosis:: Poor Patient failed bedside swallow evaluation, kept NPO Discontinued PO medications Started rectal aspirin 03/25/2020 - NIH continued to worsen - Mental status continued to worsen - Troponins continued to trend upwards - 0.095--0.078--0.328--0.458 - EKG this AM with shorter QT from yesterday - No significant ST segment changes - Improved R wave progression - Flat T waves on V2 compared to yesterday - Hyponatremia and hypomagnesemia resolved - Glucose trend 179-[address] [facility] - Patient Instructions Diet: NPO - Discharge Plan *PRESCRIPTION DRUG MONITORING PROGRAM REVIEWED*: Not Applicable *COPY OF PRESCRIPTION DRUG MONITORING REPORT IN PATIENT MATTY: Not Applicable Home Medications: Home Meds Aspirin 81 mg PO DAILY 08/08/18 [History] Clopidogrel Bisulfate [Plavix] 75 mg PO DAILY 08/08/18 [History] Losartan [Cozaar] 100 mg PO DAILY 08/08/18 [History] Memantine [Namenda] 5 mg PO DAILY 08/08/18 [History] Simvastatin [Zocor] 40 mg PO BEDTIME 08/08/18 [History] hydroCHLOROthiazide [Microzide] 12.5 mg PO DAILY 08/08/18 [History] metFORMIN HCl [Metformin HCl] 1,000 mg PO BID 08/08/18 [History] Dulaglutide [Trulicity] 1.5 mg SQ WEEKLY 03/24/20 [History] Insulin Aspart [NovoLOG] 0 units SUBCUT DAILY 03/24/20 [History] Insulin Glargine,Hum.Rec.Anlog [Basaglar Kwikpen U-100] 30 units SQ BID 03/24/20 [History] Levothyroxine 75 mcg PO DAILY 03/24/20 [History] Pantoprazole Sodium [Protonix] 20 mg PO DAILY 03/24/20 [History] Referrals: PCP,None [Primary Care Provider] - - Discharge Summary/Plan Comment DC Time >30 min.: Yes (coordinating transfer of care) - General Info Date of Service: 03/25/20 Subjective Update: Worsening alertness level Worsening NIH No complaints by patient NG tube placement attempted by nursing, unsuccessful - Patient Data Weight - Most Recent: 76.113 kg - Exam General: Reports: Alert, Mild Distress. Denies: Oriented HEENT: Reports: Pupils Equal, Pupils Reactive. Denies: Mucous Membr. Moist/[place] Neck: Reports: Trachea Midline, No JVD Lungs: Reports: Decreased Breath Sounds, Crackles, Rales. Denies: Rhonchi, Rub, Stridor, Wheezing Cardiovascular: Reports: Regular Rhythm, Tachycardia. Denies: Murmurs, Gallops, Rubs GI/Abdominal Exam: Normal Bowel Sounds, Soft, Distended. No: Guarding, Rigid, Rebound Extremities: Slow Capillary Refill
[2020-03-25] MEDS: Atropine 1% Ophth Soln 5 ML BOTTLE SL PRN (08:30)
[2020-03-25] MEDS ORDERED: Enoxaparin 40 MG/0.4 ML Syringe SUBCUT SCH (09:00)
[2020-03-25] MEDS ORDERED: Nicotine 21 MG/24 Hr Patch TRDERM SCH (09:00)
[2020-03-25] MEDS ORDERED: Aspirin 81 MG Tab.EC PO SCH (09:00)
--- NOTE | 2020-03-25 13:32 | CR ---
Chest: Portable view of the chest was obtained. Comparison: Prior chest x-ray of 03/24/20. Heart size and mediastinum are within normal limits for portable technique. Right-sided jugular catheter is seen. Tip of this catheter is difficult to see but appears to lie near the right atrial and superior vena cava junction. Lungs are clear with no acute parenchymal change. No pneumothorax is seen. Bony structures are grossly intact. Impression: 1. Tip of central line difficult to see but appears to lie near the right atrial and superior vena cava junction. 2. Nothing acute is otherwise seen on portable chest x-ray. Diagnostic code #2 This report was dictated in MDT I agree with preliminary report from [facility], finalized on 03/24/20, 2:07 PM Central Daylight Time
[2020-03-26] MEDS ORDERED: Remove Patch*NICOTINE TRDERM SCH (09:00)
== END 2020-03-25 09:39 | DRG 64 ==
LOC: JD.ED 07:23 → JD.MS 09:56
PROVIDERS: ADMIT Internal Medicine; ATTEND Internal Medicine
PROC: 02HV33Z Insertion of Infusion Device into Superior Vena Cava, Percutaneous Approach (ICD-10-PCS; principal; 2020-03-24)
PROC: 8E0ZXY6 Isolation (ICD-10-PCS; 2020-03-24)
DX: I63.9 Cerebral infarction, unspecified (principal); U07.1 COVID-19; N17.9 Acute kidney failure, unspecified; E87.1 Hypo-osmolality and hyponatremia; I69.351 Hemiplegia and hemiparesis following cerebral infarction affecting right dominant side; E11.65 Type 2 diabetes mellitus with hyperglycemia; F17.210 Nicotine dependence, cigarettes, uncomplicated; E03.9 Hypothyroidism, unspecified; K21.9 Gastro-esophageal reflux disease without esophagitis; N42.9 Disorder of prostate, unspecified; E78.5 Hyperlipidemia, unspecified; Z88.6 Allergy status to analgesic agent; E83.42 Hypomagnesemia; R29.709 NIHSS score 9; E78.00 Pure hypercholesterolemia, unspecified; I25.2 Old myocardial infarction; R74.8 Abnormal levels of other serum enzymes; J43.1 Panlobular emphysema; R47.01 Aphasia; I48.91 Unspecified atrial fibrillation; E11.22 Type 2 diabetes mellitus with diabetic chronic kidney disease; N18.3 Chronic kidney disease, stage 3 (moderate); Z79.82 Long term (current) use of aspirin; Z79.4 Long term (current) use of insulin; Z79.899 Other long term (current) drug therapy; Z99.3 Dependence on wheelchair; Z79.890 Hormone replacement therapy; Z78.9 Other specified health status; Z88.0 Allergy status to penicillin; Z88.1 Allergy status to other antibiotic agents; Z88.5 Allergy status to narcotic agent; Z79.02 Long term (current) use of antithrombotics/antiplatelets
CPT/HCPCS: 36415; 70450; 71045; 80053; 82728; 82962; 83036; 83615; 83735; 83880; 84484; 85025; 85379; 85610; 85730; 93005; 96361; 96365; 99285; J3475; J7030; U0002; 36556; 80048; 81225; 82306; 82607; 82746; 83605; 84100; 87040; 93010; 99223; 99239; A9270-GY; J1650; J7120; J7121